=== PATIENT | male | born 1985 | race Caucasian/White ===

== ENCOUNTER 2019-11-10 01:34 | Emergency (ER) | payer OTHER ==
--- NOTE | 2019-11-10 02:25 | PDOC ---
History of Present Illness - General Stated Complaint: EAR PAIN/UNABLE TO SLEEP Time Seen by Provider: 11/10/19 02:24 - History of Present Illness Initial Comments: HPI: 34yo M with no reported PMH presenting with right ear pain. Patient states his pain started on . He went to an urgent care on Tuesday and was tested negative for both flu and strep. The urgent care also performed a blood test for mono of which the patient does not know the result. Patient has been taking ibuprofen at home to control his pain. He presents today because his pain was so severe that he could not sleep. 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 Denies ear bleeding or discharge. No fever, but endorses chills. ROS: Constitutional: no fever, +chills HEENT: +otalgia, no dysphagia Cardiovascular: no chest pain, no palpitations Respiratory: no cough, no shortness of breath Gastrointestinal: no abdominal pain, no nausea Genitourinary: no dysuria, no hematuria Musculoskeletal: no myalgia, no arthralgia Skin: no rash, no itching Neurologic: no headache, no weakness Psych: no agitation, no anxiety PE: General: Awake, alert, and fully oriented, in no acute distress Head: No signs of trauma Eyes: EOMI, sclera anicteric ENT: Moist mucus membranes, normal TMs, no pain upon tugging the right pinna, uvula midline, no jaw pain Neck: Normal ROM, supple, 1cm right-sided enlarged cervical lymph node that is tender to palpation Lungs: Lungs clear, Normal breath sounds Cardio: Regular rhythm, S1 and S2 present Abdomen: Soft, nontender Extremities: Normal range of motion, Distal pulses present SKIN: Warm, Dry, normal turgor Neurologic: Cranial nerves II through XII grossly intact. Normal speech. Abnormal affect. ED Course/MDM: DDX including but not limited to otitis media/extrena, mastoiditis, abscess Throat culture sent CT head to assess for mastoiditis, abscess 11/10/19 02:25 Patient is of sound mind and has capacity to make decisions. Benefits/risks explained to patient and they voiced understanding. Patient decided to refuse CT Head. Stated "I just want to go home right now" Sgned AMA form Received toradol IM Return precautions ENT referral Primary care referral Stable for discharge 11/10/19 05:36 Past History - Past Medical History Allergies/Adverse Reactions: Allergies Allergy/AdvReac Type Severity Reaction Status Date / Time No Known Allergies Allergy Verified 11/10/19 05:16 Home Medications: Ambulatory Orders NK [No Known Home Medication] 11/10/19 Discharge - Discharge Information Problems reviewed: Yes Clinical Impression/Diagnosis: Ear pain, right Disposition: HOME - Follow up/Referral Referrals: [facility] [place] [facility] [place] [Provider Group] Trell Alexander MD [Staff Physician] - - Patient Discharge Instructions Patient Printed Discharge Instructions: DI for Ear Pain-Adult Additional Instructions: You came into the emergency department for ear pain. An exam of your ear did not show any abnormalities. You declined a CT scan of your head. As discussed you may have undiagnosed illness or medical diagnosis that if left untreated can lead to multiple complications including, but not limited to permanent disability and . Should you reconsider you should return to the emergency department for evaluation. You can take [id number] tylenol or motrin for pain. Follow the instructions on the medication bottle. We sent a throat culture. You will receive a call if the culture is positive. Follow-up with a primary care provider within 72 hours to discuss this ED visit and to further evaluate your symptoms. Your workup is not complete until you do so. You have been referred to the [facility] in case you do not have a primary care doctor. Call and make an appointment at the number provided. We have also referred you to an ENT specialist for further evaluation. Call and make an appointment at the number provided. - Post Discharge Activity
--- NOTE | 2019-11-10 02:38 | PDOC ---
Attending Attestation - Resident Resident Name: Elizabeth Rogers - ED Attending Attestation I have performed the following: I have examined & evaluated the patient, The case was reviewed & discussed with the resident, I agree w/resident's findings & plan - HPI HPI: 11/11/19 20:46 34yo M with no reported PMH presenting with right ear pain. Patient states his pain started on . He went to an urgent care on Tuesday and was tested negative for both flu and strep. The urgent care also performed a blood test for mono of which the patient does not know the result. Patient has been taking ibuprofen at home to control his pain. He presents today because his pain was so severe that he could not sleep. 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 We want to do further testing, but pt is refusing further workup and wants to go home.
[2019-11-10 02:39] VITALS: BP 111/71; PULSE 66; TEMP 98.1; BMI 20.1
[2019-11-10] MEDS ORDERED: KETOROLAC TROMETHAMINE 30 MG/1 ML VIAL IM ONE (03:52)
== END 2019-11-10 05:36 | disposition home or self-care (01) ==
LOC: JER 01:34
DX: H92.01 Otalgia, right ear (principal)
CPT/HCPCS: 87070; 99281-25

== ENCOUNTER 2021-05-01 23:31 | Emergency (ER) | payer OTHER ==
[2021-05-01 23:38] VITALS: BP 122/78; PULSE 85; TEMP 97; BMI 25.8
== END 2021-05-02 02:23 | disposition home or self-care (01) ==
LOC: JER 23:31
DX: S69.91XA Unspecified injury of right wrist, hand and finger(s), initial encounter (principal); W23.1XXA Caught, crushed, jammed, or pinched between stationary objects, initial encounter; Y93.B3 Activity, free weights
CPT/HCPCS: 73130-TC-RT-FY; 99283-25